=== PATIENT | female | born 1975 | race Caucasian/White ===

== ENCOUNTER 2017-10-10 10:26 | Day surgery (SDC) | payer OTHER ==
[~2017-10-10] VITALS: Ht 154.9 cm; Wt 78.5 kg
[~2017-10-10 10:26] MED LIST: ALIVE WOMEN'S1 EAC1 PO
[2017-10-10 10:56] VITALS: BP 115/74
[2017-10-10 16:25] VITALS: BP 109/67
[2017-10-10 17:25] VITALS: BP 105/59
== END 2017-10-10 17:40 | disposition home or self-care (01) ==
LOC: SDC 10:26
PROC: 0JNR0ZZ Release Left Foot Subcutaneous Tissue and Fascia, Open Approach (ICD-10-PCS; principal; 2017-10-10)
PROC: 0J8R0ZZ Division of Left Foot Subcutaneous Tissue and Fascia, Open Approach (ICD-10-PCS; principal; 2017-10-10)
DX: G57.52 Tarsal tunnel syndrome, left lower limb (principal); M72.2 Plantar fascial fibromatosis; Z86.69 Personal history of other diseases of the nervous system and sense organs; Z88.0 Allergy status to penicillin; Z88.5 Allergy status to narcotic agent; Z91.040 Latex allergy status
CPT/HCPCS: J1100; J1170; J1885; J2250; J2405; J3010; S0020